=== PATIENT | female | born 1955 | race Caucasian/White ===

== ENCOUNTER 2017-09-15 22:18 | Emergency (ER) | payer OTHER ==
[~2017-09-15] VITALS: Ht 172.7 cm; Wt 58.4 kg
[~2017-09-15 22:18] MED LIST: ADULT FOLDING1 EACH MC; ASPIRIN81 M1 PO; ATROVENT H200 INHALA; BYSTOLIC5 MG PO; CYMBALTA60 MG PO; Cymbalta PO; DULERA 200 MCG/13 GM IH; DURAGESIC100 MICROG TD; DURAGESIC75 MCG TD; Dulera 200 mcg/5 mcg IH; EFFEXOR XR150 MG PO; FLEXERIL10 MG PO; Folvite PO; Habitrol,Nicoderm CQ TD; IBUPROFEN800 MG PO; LEUCOVORIN CALCIUM PO; LINZESS145 MCG PO; Levaquin PO; METHOTREXATE PO; MOTRIN800 MG PO; NAPROXEN500 MG PO; OSCAL, OYSTER500 MG PO; OXAYDO5 MG PO; OxyCODONE PO; PRAVACHOL40 MG PO; PREDNISONE20 MG PO; PROVENTIL,2.5 MG/3 M IH; REMICADE10 MG/ML IV; ROXICODONE15 MG; SIMVASTATIN40 M1 PO; SYNTHROID112 MCG PO; SYNTHROID125 MCG PO; THERAGRAN1 TABLET PO; VENLAFAXINE HC150 M1 PO; VIVELLE-DOT0.05 MG; VIVELLE-DOT0.05 MG TD; XOPENEX HFA15 GM IH; ZOCOR40 MG PO; predniSONE PO
[2017-09-16 00:46] VITALS: BP 123/72
== END 2017-09-16 00:56 | disposition home or self-care (01) ==
LOC: EME 22:18
PROC: 2W3CX1Z Immobilization of Right Lower Arm using Splint (ICD-10-PCS; principal; 2017-09-16)
DX: S62.616A Displaced fracture of proximal phalanx of right little finger, initial encounter for closed fracture (principal); S80.01XA Contusion of right knee, initial encounter; S40.011A Contusion of right shoulder, initial encounter; W18.30XA Fall on same level, unspecified, initial encounter; Y93.K1 Activity, walking an animal; E78.5 Hyperlipidemia, unspecified; F32.9 Major depressive disorder, single episode, unspecified; I10 Essential (primary) hypertension; E03.9 Hypothyroidism, unspecified; J43.9 Emphysema, unspecified; Z88.0 Allergy status to penicillin; F17.200 Nicotine dependence, unspecified, uncomplicated
CPT/HCPCS: 73030; 73130; 73564; 99281; 99284